=== PATIENT | female | born 1950 | race Native Hawaiian/Other Pacific Islander ===

== ENCOUNTER 2017-12-13 17:32 | Emergency (ER) | payer OTHER ==
[2017-12-13 17:36] VITALS: BMI 26.5
[2017-12-13 17:39] VITALS: RESP 18
[2017-12-13] MEDS ORDERED: Tetanus/Diphtheria Toxoids 0.5 ml Syringe IM ONE ×2 (18:04→18:38)
[2017-12-13] MEDS ORDERED: Bacitracin 500 Units/gm Oint Foilpak UD TOP STA (18:04)
--- NOTE | 2017-12-13 18:06 | C.PDOC ---
History Of Present Illness 67 year old female presents to the ED for an evaluation of scratches on the face sustained today. 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 Denies any eye injuries, vision changes, or any other trauma. Unknown Tetanus vaccination status. Time Seen by Provider: 12/13/17 18:00 Chief Complaint (Nursing): Abnormal Skin Integrity History Per: Patient History/Exam Limitations: no limitations Onset/Duration Of Symptoms: Hrs Past Medical History Reviewed: Historical Data, Nursing Documentation, Vital Signs Vital Signs: Last Vital Signs Temp 98.3 F 12/13/17 17:36 Pulse 73 12/13/17 17:36 Resp 18 12/13/17 17:36 BP 144/77 12/13/17 17:36 Pulse Ox 99 12/13/17 17:36 - Medical History PMH: HTN, Hypercholesterolemia Other Surgeries: Hx of surgeries Family History: States: No Known Family Hx - Social History Hx Alcohol Use: No Hx Substance Use: No - Immunization History Hx Tetanus Toxoid Vaccination: No Hx Influenza Vaccination: No Hx Pneumococcal Vaccination: No Review Of Systems Except As Marked, All Systems Reviewed And Found Negative. Skin: Positive for: Other (abrasions to face) Physical Exam - Physical Exam Appears: Non-toxic Skin: Warm, Dry, Other (abrasion noted to left lateral side of nose. no active bleeding. ) Head: Normacephalic Eye(s): bilateral: Normal Inspection, PERRL, EOMI Nose: Normal Oral Mucosa: Moist Neck: Normal ROM Chest: Symmetrical Extremity: Normal ROM Neurological/Psych: Oriented x3, Normal Speech Gait: Steady ED Course And Treatment O2 Sat by Pulse Oximetry: 99 (RA) Pulse Ox Interpretation: Normal Progress Note: Tetanus vaccination administered. Bacitracin applied to abrasion. Patient instructed to continue applying Bacitracin to wound. Disposition - Disposition Referrals: Camila Jacobson MD [Staff Provider] - Disposition: HOME/ ROUTINE Disposition Time: 18:05 Condition: STABLE Additional Instructions: Follow up with PMD within 1-2 days. Return to ED if feel worse. 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 - Scribe Statement The provider has reviewed the documentation as recorded by the Scribe Aubree Vargas All medical record entries made by the Guilhermeibchen were at my direction and p ersonally dictated by me. I have reviewed the chart and agree that the record accurately reflects my personal performance of the history, physical exam, medical decision making, and the department course for this patient. I have also personally directed, reviewed, and agree with the discharge instructions and disposition.
[2017-12-13] MEDS ORDERED: Bacitracin 500 Units/gm Oint Foilpak UD ONE (18:38)
[2017-12-13 18:51] VITALS: BP 129/82; PULSE 88; TEMP 98.9
[2017-12-13 19:40] VITALS: O2SAT 99
== END 2017-12-13 18:51 | disposition home or self-care (01) ==
LOC: C.ER 17:32
DX: S00.31XA Abrasion of nose, initial encounter (principal); X58.XXXA Exposure to other specified factors, initial encounter; Y92.89 Other specified places as the place of occurrence of the external cause; Y99.0 Civilian activity done for income or pay